=== PATIENT | male | born 1965 | race Caucasian/White ===

== ENCOUNTER 2016-10-23 17:16 | Emergency (ER) | payer MEDICAID ==
[~2016-10-23] VITALS: Ht 383.5 cm; Wt 72.6 kg
[2016-10-23 20:18] VITALS: BP 125/72
== END 2016-10-23 21:15 | disposition home or self-care (01) ==
LOC: ER 17:22
DX: I10 Essential (primary) hypertension (principal); E11.9 Type 2 diabetes mellitus without complications; Z88.0 Allergy status to penicillin; Z88.8 Allergy status to other drugs, medicaments and biological substances; Z90.49 Acquired absence of other specified parts of digestive tract

== ENCOUNTER 2016-10-30 12:41 | Emergency (ER) | payer MEDICAID ==
[~2016-10-30] VITALS: Ht 175.3 cm; Wt 72.6 kg
[2016-10-30 13:20] VITALS: BP 138/81
[2016-10-30 13:24] LABS: Urine RBC None Seen /hpf (0 - 3)
[2016-10-30 13:42] LABS: Basophils # (auto) 0.1 uL; Basophils % (auto) 0.8 % (0.0-2.0); Eosinophils # (auto) 0 uL; Eosinophils % (auto) 0.5 % (0.0-7.0); Hematocrit 44.7 % (41.0-53.0); Hemoglobin 15.4 g/dL (13.5-17.5); Lymphocytes # (auto) 1.3 uL; Lymphocytes % (auto) 13.8 % (10.0-50.0); Mean Corpuscular Hemoglobin 29.5 pg (28.0-32.0); Mean Corpuscular Hgb Conc. 34.4 g/dL (32.0-36.0); Mean Corpuscular Volume 85.7 fL (80.0-100.0); Mean Platelet Volume 6.8 fL (7.4-10.4); Monocytes # (auto) 0.5 uL; Monocytes % (auto) 5.6 % (0.0-12.0); Neutrophils # (auto) 7.4 uL; Neutrophils % (auto) 79.3 % (37.0-80.0); Platelet Count (auto) 347 10^3/uL (140-450); Red Cell Distribution Width 13.8 % (11.6-16.0); White Blood Cell 9.4 10^3/uL (4.4-10.8)
[2016-10-30] MEDS: HYDROmorphone HCL 2 MG/ML VL IV ONE (13:58)
[2016-10-30] MEDS: SODIUM CHLORIDE 0.9% 1,000 ML IVB ONE (13:58)
[2016-10-30] MEDS: ONDANSETRON HCL 4 MG/2 ML VIAL IV ONE (13:59)
[2016-10-30 14:10] LABS: Urine Bilirubin Negative (Negative); Urine Blood Negative /uL (Negative); Urine Color Yellow (Yellow); Urine Glucose Normal (Normal); Urine Ketone Negative (Negative); Urine Nitrite Negative (Negative); Urine Urobilinogen Normal (Negative)
[2016-10-30 14:11] LABS: Albumin 4.2 g/dL (3.4-5.0); BUN/Creatinine Ratio 15.2; Bilirubin, Total 0.5 mg/dL (0.2-1.0); Potassium 4.5 mmol/L (3.5-5.1); Total Protein 7.7 g/dL (6.4-8.2)
== END 2016-10-30 15:06 | disposition home or self-care (01) ==
LOC: ER 12:43
DX: N20.9 Urinary calculus, unspecified (principal); E11.9 Type 2 diabetes mellitus without complications; I10 Essential (primary) hypertension; Z90.89 Acquired absence of other organs; Z88.6 Allergy status to analgesic agent; Z88.8 Allergy status to other drugs, medicaments and biological substances
CPT/HCPCS: 36415; 74176; 80053; 81001; 83690; 85025; 94761; 96361; 96374; 96375; 99285; J1170; J2405; J7030

== ENCOUNTER 2016-11-05 15:22 | Emergency (ER) | payer MEDICAID ==
[~2016-11-05] VITALS: Ht 175.3 cm; Wt 72.6 kg
[2016-11-05 15:35] VITALS: BP 144/90
[2016-11-05 16:32] LABS: Urine RBC None Seen /hpf (0 - 3)
[2016-11-05 16:43] LABS: Urine Bilirubin Negative (Negative); Urine Blood Negative /uL (Negative); Urine Color Yellow (Yellow); Urine Glucose Normal (Normal); Urine Ketone Negative (Negative); Urine Nitrite Negative (Negative); Urine Squamous Epithelial Cell FEW /hpf (<5); Urine Urobilinogen Normal (Negative); Urine pH 5.5 (5.0-8.0)
== END 2016-11-05 22:40 | disposition left against medical advice (07) ==
LOC: ER 15:22
DX: R10.9 Unspecified abdominal pain (principal); Z87.442 Personal history of urinary calculi; Z53.21 Procedure and treatment not carried out due to patient leaving prior to being seen by health care provider
CPT/HCPCS: 81001

== ENCOUNTER 2016-11-06 09:04 | Emergency (ER) | payer MEDICAID ==
[~2016-11-06] VITALS: Ht 175.3 cm; Wt 72.6 kg
[2016-11-06 09:20] VITALS: BP 133/87
== END 2016-11-06 09:57 | disposition left against medical advice (07) ==
LOC: ER 09:04
DX: R10.9 Unspecified abdominal pain (principal); Z53.21 Procedure and treatment not carried out due to patient leaving prior to being seen by health care provider

== ENCOUNTER 2017-02-01 13:16 | Emergency (ER) | payer MEDICAID ==
[2017-02-01] MEDS ORDERED: SODIUM CHLORIDE 0.9% 1,000 ML IV ONE (13:21)
[2017-02-01 13:59] LABS: Basophils # (auto) 0 uL; Basophils % (auto) 0.4 % (0.0-2.0); CONDITION Y; DEFINITIVE SEE PRINTOUT; Eosinophils # (auto) 0.1 uL; Eosinophils % (auto) 0.8 % (0.0-7.0); Hematocrit 40.7 % (41.0-53.0); Lymphocytes # (auto) 1.6 uL; Lymphocytes % (auto) 24.1 % (10.0-50.0); Mean Corpuscular Hemoglobin 31.5 pg (28.0-32.0); Mean Corpuscular Hgb Conc. 36.8 g/dL (32.0-36.0); Mean Corpuscular Volume 85.7 fL (80.0-100.0); Mean Platelet Volume 7.7 fL (7.4-10.4); Monocytes # (auto) 0.3 uL; Neutrophils # (auto) 4.7 uL; Neutrophils % (auto) 70.7 % (37.0-80.0); Platelet Count (auto) 263 10^3/uL (140-450); Red Cell Distribution Width 13.7 % (11.6-16.0); White Blood Cell 6.6 10^3/uL (4.4-10.8)
[2017-02-01 14:25] LABS: INR 1.09 (0.9-1.15); Partial Thromboplastin Time 28.7 sec (22.64-33.71); Prothrombin Time 11.9 sec (9.37-12.3)
[2017-02-01 15:05] LABS: Urine Bilirubin Negative (Negative); Urine Blood Negative /uL (Negative); Urine Color Yellow (Yellow); Urine Glucose Normal (Normal); Urine Ketone Negative (Negative); Urine Nitrite Negative (Negative); Urine RBC <1 /hpf (0 - 3); Urine Urobilinogen Normal (Negative)
[2017-02-01 15:34] LABS: Albumin 4.1 g/dL (3.4-5.0); Alkaline Phosphatase 113 U/L (45-117); Anion Gap 12 (5-15); Aspartate Aminotransferase 17 U/L (15-37); Blood Urea Nitrogen 19 mg/dL (7-18); Carbon Dioxide 20 mmol/L (21-32); Chloride 103 mmol/L (98-107); GFR African American 78 mL/min; GFR Non-African American 64 mL/min; Glucose 114 mg/dL (74-106); Potassium 3.3 mmol/L (3.5-5.1); Sodium 135 mmol/L (136-145); Total Protein 7.2 g/dL (6.4-8.2)
[2017-02-01 16:39] VITALS: BP 153/98
== END 2017-02-01 16:55 | disposition short-term general hospital (02) ==
LOC: EDUNIT# 13:16 → ER 13:20
DX: H57.12 Ocular pain, left eye (principal); H53.8 Other visual disturbances; R00.2 Palpitations; E11.9 Type 2 diabetes mellitus without complications; I10 Essential (primary) hypertension; Z94.9 Transplanted organ and tissue status, unspecified; R06.02 Shortness of breath; Z88.0 Allergy status to penicillin; Z88.8 Allergy status to other drugs, medicaments and biological substances; R51 Headache
CPT/HCPCS: 36415; 71010; 80053; 81001; 83735; 84484; 85025; 85610; 85730; 93005; 94761; 96360; 96361; 99285; J7030

== ENCOUNTER 2017-07-17 21:23 | Emergency (ER) | payer MEDICAID ==
[~2017-07-17] VITALS: Ht 175.3 cm; Wt 74.8 kg
[2017-07-17 22:02] LABS: Basophils # (auto) 0 uL; Basophils % (auto) 0.5 % (0.0-2.0); Eosinophils # (auto) 0.1 uL; Eosinophils % (auto) 0.7 % (0.0-7.0); Hematocrit 38.8 % (41.0-53.0); Hemoglobin 13.5 g/dL (13.5-17.5); Lymphocytes # (auto) 1.5 uL; Lymphocytes % (auto) 17.6 % (10.0-50.0); Mean Corpuscular Hemoglobin 30.1 pg (28.0-32.0); Mean Corpuscular Hgb Conc. 34.8 g/dL (32.0-36.0); Mean Corpuscular Volume 86.5 fL (80.0-100.0); Monocytes # (auto) 0.5 uL; Neutrophils # (auto) 6.4 uL; Neutrophils % (auto) 75.2 % (37.0-80.0); Nucleated Red Blood Cells % 0.1 %; Platelet Count (auto) 225 10^3/uL (140-450); Red Cell Distribution Width 13.6 % (11.8-14.3); White Blood Cell 8.5 10^3/uL (4.4-10.8)
[2017-07-17 22:24] LABS: Alkaline Phosphatase 86 U/L (45-117); Anion Gap 10 (5-15); Aspartate Aminotransferase 13 U/L (15-37); BUN/Creatinine Ratio 9.6; Bilirubin, Total 1.1 mg/dL (0.2-1.0); Blood Urea Nitrogen 9 mg/dL (7-18); Calcium 8.5 mg/dL (8.5-10.1); Carbon Dioxide 25 mmol/L (21-32); Chloride 94 mmol/L (98-107); GFR African American 109 mL/min; GFR Non-African American 90 mL/min; Glucose 110 mg/dL (74-106); Magnesium 1.9 mg/dL (1.6-2.6); Potassium 3.8 mmol/L (3.5-5.1); Sodium 129 mmol/L (136-145); Total Protein 7.2 g/dL (6.4-8.2)
[2017-07-18 00:09] VITALS: BP 104/64
== END 2017-07-18 00:21 | disposition home or self-care (01) ==
LOC: EDBD 21:23 → ER 21:31
DX: F41.9 Anxiety disorder, unspecified (principal); E11.9 Type 2 diabetes mellitus without complications; I10 Essential (primary) hypertension; Z88.0 Allergy status to penicillin; Z88.8 Allergy status to other drugs, medicaments and biological substances
CPT/HCPCS: 36415; 71010; 80053; 83735; 84484; 85025; 93005; 94761

== ENCOUNTER 2017-08-01 14:53 | Emergency (ER) | payer MEDICAID ==
[~2017-08-01] VITALS: Ht 175.3 cm; Wt 74.8 kg
[2017-08-01 19:16] VITALS: BP 132/77
[2017-08-01] MEDS ORDERED: CYCLOBENZAPRINE HCL 10 MG TAB PO ONE (19:45)
== END 2017-08-01 20:19 | disposition home or self-care (01) ==
LOC: ER 14:53
DX: M79.604 Pain in right leg (principal); M79.1 Myalgia; E11.9 Type 2 diabetes mellitus without complications; I10 Essential (primary) hypertension; Z90.49 Acquired absence of other specified parts of digestive tract; Z88.0 Allergy status to penicillin; Z88.6 Allergy status to analgesic agent
CPT/HCPCS: 93971

== ENCOUNTER 2018-04-25 02:55 | Emergency (ER) | payer MEDICAID ==
[~2018-04-25] VITALS: Ht 175.3 cm; Wt 72.6 kg
[2018-04-25] MEDS ORDERED: LORazepam 0.5 MG TAB PO ONE (06:30)
[2018-04-25 07:44] LABS: Basophils # (auto) 0 uL; Basophils % (auto) 0.6 % (0.0-2.0); Eosinophils # (auto) 0.2 uL; Eosinophils % (auto) 2.6 % (0.0-7.0); Hematocrit 40.2 % (41.0-53.0); Hemoglobin 13.8 g/dL (13.5-17.5); Lymphocytes # (auto) 1.2 uL; Mean Corpuscular Hemoglobin 29.5 pg (28.0-32.0); Mean Corpuscular Hgb Conc. 34.3 g/dL (32.0-36.0); Mean Corpuscular Volume 85.9 fL (80.0-100.0); Monocytes # (auto) 0.4 uL; Monocytes % (auto) 5.8 % (0.0-12.0); Neutrophils # (auto) 4.4 uL; Platelet Count (auto) 219 10^3/uL (140-450); Red Blood Cells 4.69 10^6/uL (4.5-5.90); Red Cell Distribution Width 13.3 % (11.8-14.3); White Blood Cell 6.1 10^3/uL (4.4-10.8)
[2018-04-25 07:55] LABS: Alanine Aminotransferase 25 U/L (16-61); Albumin 4.2 g/dL (3.4-5.0); Alkaline Phosphatase 99 U/L (45-117); Anion Gap 6 (5-15); Aspartate Aminotransferase 12 U/L (15-37); BUN/Creatinine Ratio 9.6; Bilirubin, Total 1.2 mg/dL (0.2-1.0); Blood Urea Nitrogen 11 mg/dL (7-18); Calcium 8.7 mg/dL (8.5-10.1); Carbon Dioxide 29 mmol/L (21-32); Chloride 95 mmol/L (98-107); GFR African American 86 mL/min; GFR Non-African American 71 mL/min; Glucose 96 mg/dL (74-106); Magnesium 2.5 mg/dL (1.6-2.6); Potassium 4.8 mmol/L (3.5-5.1); Sodium 130 mmol/L (136-145); Total Protein 7.5 g/dL (6.4-8.2)
[2018-04-25 08:00] VITALS: BP 111/79
== END 2018-04-25 08:42 | disposition home or self-care (01) ==
LOC: EDBD 02:55 → ER 03:01
DX: F41.9 Anxiety disorder, unspecified (principal); R07.89 Other chest pain; I10 Essential (primary) hypertension; Z88.0 Allergy status to penicillin; Z88.8 Allergy status to other drugs, medicaments and biological substances; Z90.49 Acquired absence of other specified parts of digestive tract
CPT/HCPCS: 36415; 71045; 80053; 83735; 84484; 85025; 93005

== ENCOUNTER 2018-05-11 18:27 | Emergency (ER) | payer MEDICAID ==
[~2018-05-11] VITALS: Ht 175.3 cm; Wt 72.6 kg
[2018-05-11 21:46] VITALS: BP 136/76
== END 2018-05-11 22:07 | disposition home or self-care (01) ==
LOC: ER 18:31
DX: M79.605 Pain in left leg (principal); I10 Essential (primary) hypertension; Z88.8 Allergy status to other drugs, medicaments and biological substances; Z88.0 Allergy status to penicillin; Z86.718 Personal history of other venous thrombosis and embolism
CPT/HCPCS: 93005; 93971

== ENCOUNTER 2018-07-11 21:49 | Emergency (ER) | payer MEDICAID ==
[~2018-07-11] VITALS: Ht 175.3 cm; Wt 72.6 kg
[2018-07-11 23:50] LABS: Basophils # (auto) 0.1 uL; Basophils % (auto) 0.6 % (0.0-2.0); Eosinophils # (auto) 0.2 uL; Eosinophils % (auto) 1.9 % (0.0-7.0); Hematocrit 41.2 % (41.0-53.0); Hemoglobin 14.1 g/dL (13.5-17.5); Lymphocytes # (auto) 2.2 uL; Lymphocytes % (auto) 23.5 % (10.0-50.0); Mean Corpuscular Hemoglobin 29.7 pg (28.0-32.0); Mean Corpuscular Hgb Conc. 34.3 g/dL (32.0-36.0); Mean Corpuscular Volume 86.7 fL (80.0-100.0); Monocytes # (auto) 0.5 uL; Monocytes % (auto) 5.3 % (0.0-12.0); Neutrophils # (auto) 6.5 uL; Neutrophils % (auto) 68.7 % (37.0-80.0); Nucleated Red Blood Cells % 0.1 %; Platelet Count (auto) 264 10^3/uL (140-450); Red Blood Cells 4.76 10^6/uL (4.5-5.90); White Blood Cell 9.4 10^3/uL (4.4-10.8)
[2018-07-12 00:22] LABS: Anion Gap 9 (5-15); Blood Urea Nitrogen 18 mg/dL (7-18); Calcium 8.7 mg/dL (8.5-10.1); Carbon Dioxide 28 mmol/L (21-32); Chloride 96 mmol/L (98-107); Glucose 105 mg/dL (74-106); Potassium 4.6 mmol/L (3.5-5.1); Sodium 133 mmol/L (136-145)
[2018-07-12 00:24] LABS: Alanine Aminotransferase 33 U/L (16-61); Aspartate Aminotransferase 17 U/L (15-37); BUN/Creatinine Ratio 16.8; GFR African American 94 mL/min; GFR Non-African American 77 mL/min
[2018-07-12 00:29] LABS: Alkaline Phosphatase 144 U/L (45-117); Bilirubin, Total 0.6 mg/dL (0.2-1.0); Total Protein 7.6 g/dL (6.4-8.2)
[2018-07-12] MEDS ORDERED: cloNIDine HCL 0.1 MG TAB PO ONE (04:15)
[2018-07-12 05:28] VITALS: BP 92/50
== END 2018-07-12 05:48 | disposition home or self-care (01) ==
LOC: ER 21:49
DX: I10 Essential (primary) hypertension (principal); Z90.89 Acquired absence of other organs; Z88.0 Allergy status to penicillin; Z88.8 Allergy status to other drugs, medicaments and biological substances
CPT/HCPCS: 36415; 70450; 80053; 82962; 84484; 85025; 94761

== ENCOUNTER 2021-09-01 05:52 | Emergency (ER) | payer MEDICAID ==
[~2021-09-01] VITALS: Ht 175.3 cm; Wt 74.8 kg
[2021-09-01] MEDS ORDERED: KETOROLAC TROMETH 60MG/2ML VIAL IM ONE (07:15)
[2021-09-01] MEDS ORDERED: COLC1CAP PO (07:23)
[2021-09-01] MEDS ORDERED: ACET-1080 PO (07:23)
[2021-09-01] MEDS ORDERED: HYDROcodone-ACET 5/325MG TAB PO ONE (07:30)
[2021-09-01 07:40] VITALS: BP 146/95
== END 2021-09-01 07:47 | disposition home or self-care (01) ==
LOC: ER 05:52
DX: M10.9 Gout, unspecified (principal); I12.9 Hypertensive chronic kidney disease with stage 1 through stage 4 chronic kidney disease, or unspecified chronic kidney disease; N18.9 Chronic kidney disease, unspecified; F41.9 Anxiety disorder, unspecified; Z88.0 Allergy status to penicillin

== ENCOUNTER 2021-12-01 15:51 | Emergency (ER) | payer MEDICAID ==
[~2021-12-01] VITALS: Ht 175.3 cm; Wt 74.8 kg
[~2021-12-01 15:51] MED LIST: ACET-1080 PO; COLC1CAP PO
[2021-12-01 15:52] VITALS: BP 146/91
[2021-12-01] MEDS ORDERED: HYDROcodone-ACET 7.5/325MG TAB PO ONE (17:15)
[2021-12-01] MEDS ORDERED: TRAM-297 PO (17:46)
== END 2021-12-01 17:51 | disposition home or self-care (01) ==
LOC: ER 15:51
DX: M51.16 Intervertebral disc disorders with radiculopathy, lumbar region (principal); I12.9 Hypertensive chronic kidney disease with stage 1 through stage 4 chronic kidney disease, or unspecified chronic kidney disease; N18.9 Chronic kidney disease, unspecified; Z88.0 Allergy status to penicillin; Z88.8 Allergy status to other drugs, medicaments and biological substances
CPT/HCPCS: 72100

== ENCOUNTER 2022-01-08 03:23 | Inpatient (IN) | payer MEDICAID ==
[~2022-01-08] VITALS: Ht 175.3 cm; Wt 68.0 kg
[~2022-01-08 03:23] MED LIST changes: +TRAM-297 PO
[2022-01-08 05:14] LABS: Basophils # (auto) 0 10 ^3/uL (0-0.2); Basophils % (auto) 0.4 % (0.0-2.0); Eosinophils # (auto) 0.1 10 ^3/uL (0-0.8); Hematocrit 42.7 % (41.0-53.0); Hemoglobin 15.3 g/dL (13.5-17.5); Lymphocytes # (auto) 1.3 10 ^3/uL (0.4-5.4); Mean Corpuscular Hemoglobin 30.9 pg (28.0-32.0); Mean Corpuscular Hgb Conc. 35.8 g/dL (32.0-36.0); Mean Corpuscular Volume 86.3 fL (80.0-100.0); Monocytes # (auto) 0.4 10 ^3/uL (0-1.3); Monocytes % (auto) 5.8 % (0.0-12.0); Neutrophils # (auto) 5.2 10 ^3/uL (1.6-8.6); Neutrophils % (auto) 73.8 % (37.0-80.0); Nucleated Red Blood Cells % 0.2 %; Red Blood Cells 4.94 10^6/uL (4.5-5.90); Red Cell Distribution Width 13.6 % (11.8-14.3)
[2022-01-08 06:51] LABS: Potassium 3.8 mmol/L (3.5-5.1)
[2022-01-08 06:52] LABS: BUN/Creatinine Ratio 15.6; Bilirubin, Total 0.6 mg/dL (0.2-1.0); Calcium 8.9 mg/dL (8.5-10.1); Magnesium 2.4 mg/dL (1.6-2.6); Total Protein 7.7 g/dL (6.4-8.2)
[2022-01-08] MEDS ORDERED: ASPirin 81 mg TAB PO ONE (08:45)
[2022-01-08] MEDS ORDERED: ACETAMINOPHEN 325 MG TAB PO PRN (13:30)
[2022-01-08] MEDS ORDERED: MORPHINE SULFATE INJ 2 MG/ml SYRG IV PRN (13:30)
[2022-01-08] MEDS ORDERED: DOCUSATE SOD 100 MG CAP PO PRN (13:30)
[2022-01-08] MEDS ORDERED: DEXTROSE (50%) 50ML SYRG IV PRN (13:30)
[2022-01-08] MEDS ORDERED: ATORVASTATIN 20 MG TAB PO ONE (13:30)
[2022-01-08] MEDS ORDERED: NITROGLYCERIN 0.4 MG SL TAB SL PRN (13:30)
[2022-01-08] MEDS ORDERED: ONDANSETRON HCL 4 MG/2 ML VIAL IV PRN (13:30)
[2022-01-08 15:06] LABS: Cholesterol 164 mg/dL (< 200); Triglycerides 121 mg/dL (< 150)
[2022-01-08 15:09] LABS: HDL Cholesterol 47 mg/dL (40-59); LDL Cholesterol 108 mg/dL (< 100)
[2022-01-08] MEDS: SODIUM CHLORIDE 0.9% 1,000 ML IV SCH ×2 (15:46→23:30)
[2022-01-08] MEDS: HYDROcodone-ACET 5/325MG TAB PO PRN ×2 (16:09→21:48)
[2022-01-08 17:23] LABS: Urine Bacteria FEW /hpf (None Seen); Urine Blood Negative /uL (Negative); Urine Mucus FEW (None Seen); Urine Specific Gravity 1.013 (1.001-1.035); Urine WBC <1 /hpf (0 - 3)
[2022-01-08] MEDS: InsuLIN REG 1unit/0.01ml Soln (100units/ml) SC SCH (17:30)
[2022-01-08] MEDS: ACCU-CHEK COMFORT CURVE STRIP VI SCH ×2 (17:42→22:02)
[2022-01-08] MEDS ORDERED: InsuLIN REG 1unit/0.01ml Soln (100units/ml) SC SCH (22:00)
[2022-01-09 00:47] LABS: Alcohol, Urine < 3.0 mg/dL (0-10); Amphetamine Screen, Urine NEGATIVE (NEGATIVE); Barbiturate Scree,Urine NEGATIVE (NEGATIVE); Benzodiazephine Screen, Urine NEGATIVE (NEGATIVE); Cannabinoid Screen, Urine NEGATIVE (NEGATIVE); Cocaine Screen, Urine NEGATIVE (NEGATIVE); Opiate Scree,Urine NEGATIVE (NEGATIVE); Phencyclidine Screen, Urine NEGATIVE (NEGATIVE)
[2022-01-09] MEDS: ACCU-CHEK COMFORT CURVE STRIP VI SCH ×3 (06:52→17:00)
[2022-01-09] MEDS: InsuLIN REG 1unit/0.01ml Soln (100units/ml) SC SCH ×3 (06:53→17:00)
[2022-01-09 07:55] LABS: Basophils # (auto) 0 10 ^3/uL (0-0.2); Basophils % (auto) 0.4 % (0.0-2.0); Eosinophils # (auto) 0.1 10 ^3/uL (0-0.8); Hematocrit 38.1 % (41.0-53.0); Hemoglobin 13.6 g/dL (13.5-17.5); Lymphocytes # (auto) 1.2 10 ^3/uL (0.4-5.4); Lymphocytes % (auto) 23.4 % (10.0-50.0); Mean Corpuscular Hgb Conc. 35.8 g/dL (32.0-36.0); Mean Corpuscular Volume 86.6 fL (80.0-100.0); Monocytes # (auto) 0.3 10 ^3/uL (0-1.3); Monocytes % (auto) 6.3 % (0.0-12.0); Neutrophils # (auto) 3.6 10 ^3/uL (1.6-8.6); Neutrophils % (auto) 67.9 % (37.0-80.0); Nucleated Red Blood Cells % 0.3 %; Red Cell Distribution Width 13.7 % (11.8-14.3); White Blood Cell 5.3 10^3/uL (4.4-10.8)
[2022-01-09 08:18] LABS: BUN/Creatinine Ratio 14.4; Calcium 8.8 mg/dL (8.5-10.1); Potassium 4.6 mmol/L (3.5-5.1)
[2022-01-09] MEDS: HYDROcodone-ACET 5/325MG TAB PO PRN ×2 (08:57→13:21)
[2022-01-09] MEDS: SODIUM CHLORIDE 0.9% 1,000 ML IV SCH (09:57)
[2022-01-09] MEDS ORDERED: LISI2.5T47 PO (16:09)
[2022-01-09 18:34] VITALS: BP 131/88
== END 2022-01-09 18:35 | disposition home or self-care (01) | DRG 207 ==
LOC: EDBD 03:23 → ER 03:23 → EDUNIT# 03:23 → TELE 13:22
PROVIDERS: ADMIT Internal Medicine; ATTEND Internal Medicine
DX: R00.2 Palpitations (principal); E11.22 Type 2 diabetes mellitus with diabetic chronic kidney disease; I12.9 Hypertensive chronic kidney disease with stage 1 through stage 4 chronic kidney disease, or unspecified chronic kidney disease; N18.30 Chronic kidney disease, stage 3 unspecified; Z20.822 Contact with and (suspected) exposure to COVID-19; Z90.5 Acquired absence of kidney; Z88.0 Allergy status to penicillin; Z88.8 Allergy status to other drugs, medicaments and biological substances; Z79.84 Long term (current) use of oral hypoglycemic drugs
CPT/HCPCS: 36415; 71045; 80048; 80053; 80061; 80307; 81001; 82962; 83735; 83880; 84443; 84484; 85025; 85379; 93005; 93306; 99291; G0378; J1815